=== PATIENT | male | born 1945 | race Caucasian/White ===

== ENCOUNTER 2018-05-11 07:26 | Day surgery (SDC) | payer OTHER ==
[2018-05-10 16:22] VITALS: BMI 23.3
--- NOTE | 2018-05-11 09:16 | HP ---
History & Physical Update - History History: No Change (Right sided inguinal hernia repair, with mesh. The procedure has been explained , including use of prosthetic mesh. Risks, benefits and complications, including , pain , infection , hematoma and recurrence has been explained. Consent given for surgery.) - Physical Physical: No Change - Assessment Assessment: No Change - Plan Plan: No Change
[2018-05-11] MEDS ORDERED: MIDAZOLAM HCL 2 MG/2 ML SINGLE DOSE VIAL ONE (09:48)
[2018-05-11] MEDS ORDERED: ROCURONIUM BROMIDE 50 MG/5 ML VIAL ONE (09:48)
[2018-05-11] MEDS ORDERED: BUPIVACAINE HCL/PF 0.5% (5MG/ML) 10 ML VIAL ONE (09:53)
[2018-05-11] MEDS ORDERED: ceFAZolin 2 GRAM PREMIX BAG IVPB ONE (10:20)
[2018-05-11] MEDS ORDERED: BUPIVACAINE HCL/PF (5 MG/ML) 30 ML VIAL IJ ONE (10:20)
[2018-05-11] MEDS ORDERED: KETOROLAC TROMETHAMINE 30 MG/1 ML VIAL ONE (10:49)
[2018-05-11] MEDS ORDERED: LIDOCAINE HCL/PF 2% SDV 5ML VIAL ONE (10:51)
[2018-05-11] MEDS ORDERED: ONDANSETRON 4 MG/2 ML VIAL ONE (10:51)
[2018-05-11] MEDS ORDERED: ceFAZolin SODIUM 1 GM VIAL ONE (10:51)
[2018-05-11] MEDS ORDERED: SODIUM CHLORIDE 0.9% P/F 10 ML VIAL IJ ONE (10:51)
[2018-05-11] MEDS ORDERED: DEXAMETHASONE SOD PHOSPHATE 4 MG/1 ML VIAL ONE (10:51)
[2018-05-11] MEDS ORDERED: PROPOFOL 20 ML ONE (10:52)
[2018-05-11] MEDS ORDERED: PROMETHAZINE HCL 25 MG/1 ML VIAL IVPUSH PRN (11:00)
[2018-05-11] MEDS ORDERED: LACTATED RINGERS SOLUTION 1,000 ML IV SCH (11:00)
[2018-05-11] MEDS ORDERED: ONDANSETRON 4 MG/2 ML VIAL IVPUSH PRN (11:00)
[2018-05-11] MEDS ORDERED: ePHEDrine SULFATE 50 MG/1 ML AMPULE ONE (11:08)
--- NOTE | 2018-05-11 11:33 | OP ---
Operative Note - Note: Operative Date: 05/11/18 Pre-Operative Diagnosis: Right inguinal hernia. Operation: Repair of right inguinal hernia with plug and mesh. Findings: Large direct inguinal hernia across the posterior wall of the right inguinal canal. Implants: Hernia plug and mesh. Surgeon: Dayna Toscano Lap Welder: Edwar Pickering Anesthesiologist/CLINICAL OPERATIONS MANAGER: Andrea Shukla Anesthesia: General Specimens Removed: Lipoma of the cord. Estimated Blood Loss (mls): 5 Operative Report Dictated: Yes
--- NOTE | 2018-05-11 11:36 | SURG ---
Surgery Instrumentation Designer Note Instrumentation Designer: Edwar Pickering PA-C Date of Service: 05/11/18 Diagnosis: Right inguinal hernia Procedure: Open Right inguinal hernia repair with mesh I was present for the entirety of the operative procedure. For further detail, please refer to operative report.
[2018-05-11 14:09] VITALS: TEMP 97.8
[2018-05-11 14:23] VITALS: BP 132/70; PULSE 70
--- NOTE | 2018-05-11 17:10 | OP ---
DATE OF OPERATION: 05/11/2018 PREOPERATIVE DIAGNOSIS: Right inguinal hernia. POSTOPERATIVE DIAGNOSIS: Right inguinal hernia. OPERATIVE PROCEDURE: Repair of right inguinal hernia with plug and mesh. SURGEON: Dayna Toscano MD DEVELOPMENT ADMINISTRATOR: TIFFANY Currie, and medical student ANESTHESIA: General anesthesia OPERATIVE DESCRIPTION: This 73-year-old man has large right inguinal hernia, was brought in for repair of the hernia. Risks, benefits, complications have been discussed with the patient and consent obtained. Patient was brought to the operating room. General anesthesia was administered. Site was marked prior to bringing the patient to the operating room. The right groin was painted and draped. Timeout was called, and incision was made in the right groin along the skin crease. It was deepened through the skin and subcutaneous tissue, Lola fascia and external oblique aponeurosis. The ilioinguinal nerve was identified and preserved throughout the procedure. The cord structures were then isolated around the Darlene drain. The patient had large bulge on the posterior wall of the inguinal canal with fat protruding through it. The transversalis fascia was significantly attenuated. There was no internal oblique transverse abdominis muscle in the posterior wall of the inguinal canal. The cord structures were then inspected, incising the internal and external spermatic muscle and fascia. There was no evidence of any indirect hernia. There was a large lipoma of the cord which was excised and ligated at the internal ring. The patient had a wide internal ring. Through this a finger was placed behind the transversalis fascia and the fat and adipose tissue were from the posterior wall at the transversalis fascia at the inguinal canal. Large plug was inserted through the internal ring behind the transversalis fascia. This was anchored with two 2-0 Prolene sutures above and lateral to the internal ring and medial to the internal ring. The suture was passed through the internal oblique and transverse abdominal muscle, brought to the internal ring to the outer leaf of the plug and was then inserted through the internal ring and brought out through the transverse abdominis muscle and internal oblique muscle and fascia. Once both the sutures were placed, the plug was inserted through the internal ring and placed behind the posterior wall of the inguinal canal near the transversalis fascia and the internal oblique and transverse abdominis muscle. Mesh was then placed over the transversalis fascia interposing toward the defect and then through the internal oblique muscle and the shelving edge of the inguinal ligament. These were anchored at the level of the pubic tubercle with 2-0 Prolene sutures. The inferior leaf of the mesh was placed over the shelving edge of the inguinal ligament and anchored with VersaTack device. The superior leaf of the mesh was incorporated to the 2-0 Prolene suture holding the plug behind the defect by bringing the 2 limbs of the suture through the mesh and then tying the knot. Thus the internal oblique and transverse abdominis muscle were sandwiched between the mesh on the outer aspect and the plug on the deeper aspect. The lateral suture was brought over both the limbs of the mesh as it came around the cord structures and a new internal ring was created. A few tacks were then placed over the mesh to attach it to the underlying internal oblique muscle. The defect was adequately repaired and covered. Wound was irrigated, hemostasis was satisfactory. Marcaine 0.5% was injected into the wound around the ilioinguinal and iliohypogastric nerves, around the cord structures, and over the pubic tubercle, as well as and skin. The repair was adequately performed. The external oblique aponeurosis was then approximated from lateral to medial in running fashion using 3-0 Vicryl. New external ring was created. Lola fascia was approximated with buried interrupted 3-0 Vicryl sutures. Subcutaneous fat was approximated with buried interrupted 3-0 Vicryl sutures. Skin approximated with continuous 4-0 Monocryl sutures in a running subcuticular fashion. Sponge count, instrument count was correct at the completion of the procedure. Estimated blood loss was less than 5 mL. Patient tolerated procedure well, was extubated, and transferred to recovery room in satisfactory and stable condition. Alina [id number] cc: Jai Monte M.D.
--- NOTE | 2018-05-14 17:31 | PATH ---
Surgical Pathology Report Patient Name: LAUREANO GUZMÁN [facility]. Rec. #: [id number] /Age/Gender: 1945 (Age: 73) / M Account: [id number] Location: [facility] SURGICAL Taken: 05/11/2018 Received: 05/11/2018 Reported: 05/14/2018 Physicians: Hilda Toscano M.D. Specimen(s) Received LIPOMA OF THE CORD Clinical History Right inguinal hernia Final Diagnosis LIPOMA OF CORD, HERNIA REPAIR AND EXCISION: MATURE FIBROADIPOSE AND VASCULAR TISSUE COMPATIBLE WITH CORD LIPOMA. Electronically Signed Xin Grove M.D. Gross Description Received in formalin labeled "lipoma of the cord," is a 3.3 x 2.3 x 0.8 cm portion of olvera-yellow fibromembranous tissue with attached fat. Auricular Acupuncturist sections are submitted in one cassette. /05/11/2018
== END 2018-05-11 14:30 | disposition home or self-care (01) ==
LOC: JASU-SURG 07:26
PROVIDERS: ATTEND Specialist
PROC: 0YU50JZ Supplement Right Inguinal Region with Synthetic Substitute, Open Approach (ICD-10-PCS; principal; 2018-05-11 10:00)
DX: K40.90 Unilateral inguinal hernia, without obstruction or gangrene, not specified as recurrent (principal)
CPT/HCPCS: 88304-TC; 94760

== ENCOUNTER 2023-01-07 14:32 | Inpatient (IN) | payer OTHER ==
[2023-01-07] MEDS ORDERED: SODIUM CHLORIDE 1,973 ML IV ONE (15:36)
[2023-01-07 16:16] LABS: BASO % 0.2 % (0-2.0); EOS % 0.3 % (0-4.5); HEMOGLOBIN 12.1 GM/dL (11.7-16.9); LYMPH % 4.8 % (8-40); MCH 30.1 pg (25.7-33.7); MCHC 32.8 g/dl (32.0-35.9); MEAN CELL VOLUME 91.8 fl (80-96); MEAN PLT VOLUME 9.2 fl (7.5-11.1); MONO % 7.9 % (3.8-10.2); NEUT % 86.8 % (42.8-82.8); PLATELET COUNT 146 10^3/uL (134-434); RBC 4.03 M/mm3 (4.00-5.60); RDW 12.9 % (11.9-15.9); WHITE BLOOD COUNT 11.9 K/mm3 (4.0-10.0)
[2023-01-07 16:22] LABS: INR 1.33 (0.83-1.09); PROTHROMBIN TIME (PATIENT) 15.4 SEC (9.7-13.0)
[2023-01-07 16:23] LABS: VENOUS BASE EXCESS -1.3 mmol/L (-2-2); VENOUS O2 SATURATION 60.9 % (70-80); VENOUS PCO2 37.1 mmHg (38-52); VENOUS PH 7.409 (7.310-7.410)
[2023-01-07 16:25] LABS: ACTIVATED PTT 28.4 SECONDS (25.2-36.5)
[2023-01-07 16:49] LABS: POTASSIUM 4.5 mmol/L (3.5-5.1)
[2023-01-07 16:51] LABS: CALCIUM 8.7 mg/dL (8.5-10.1)
[2023-01-07 16:52] LABS: ALBUMIN 2.9 g/dl (3.4-5.0)
[2023-01-07 16:55] LABS: CREATININE 1.7 mg/dL (0.55-1.3)
[2023-01-07 16:57] LABS: BILIRUBIN,TOTAL 0.5 mg/dL (0.2-1); TOT PROT 5.8 g/dl (6.4-8.2)
[2023-01-07] MEDS ORDERED: LACTATED RINGERS SOLUTION 1000 ML INFUS.BAG IV ONE (17:11)
[2023-01-07] MEDS ORDERED: AZITHROMYCIN IVPB 500 MG in DEXTROSE 5%-WATER - 250 ML IVPB ONE (17:26)
[2023-01-07] MEDS ORDERED: AZITHROMYCIN IVPB 500 MG/250 ML BAG IVPB ONE (18:05)
[2023-01-07] MEDS ORDERED: cefTRIAXone SODIUM 1 GM VIAL ONE (18:05)
[2023-01-07 19:28] LABS: EPI CELLS 13 /uL (0-25.1); HYALINE CASTS 0 /uL (0-3.1); URINE APPEARANCE CLEAR; URINE BACTERIA 19 /uL (0-1359); URINE BILIRUBIN NEGATIVE (NEGATIVE); URINE COLOR YELLOW; URINE GLUCOSE (UA) NEGATIVE (NEGATIVE); URINE KETONE NEGATIVE (NEGATIVE); URINE LEUK ESTERASE 1+ (NEGATIVE); URINE NITRITE NEGATIVE (NEGATIVE); URINE PROTEIN TRACE (NEGATIVE); URINE RBC 18 /uL (0-23.9); URINE WBC 171 /uL (0-25.8)
[2023-01-07] MEDS: HEPARIN NA (PORCINE) 5,000 UNITS/ML 1ML VIAL SQ SCH (22:12)
[2023-01-07 23:40] VITALS: BMI 23.2
[2023-01-08] MEDS: LACTATED RINGERS SOLUTION 1,000 ML/1,000 ML INFUS.BAG IV SCH (05:13)
[2023-01-08] MEDS: HEPARIN NA (PORCINE) 5,000 UNITS/ML 1ML VIAL SQ SCH ×3 (05:20→22:49)
[2023-01-08] MEDS ORDERED: PIPERACILLIN/TAZOB 3.375 GM 3.375 GM in DEXTROSE 5%-WATER - 50 ML IVPB SCH (06:45)
[2023-01-08 09:23] LABS: BASO % 0.1 % (0-2.0); EOS % 0.3 % (0-4.5); HEMOGLOBIN 11.1 GM/dL (11.7-16.9); MCH 30.8 pg (25.7-33.7); MCHC 33.7 g/dl (32.0-35.9); MEAN CELL VOLUME 91.5 fl (80-96); MONO % 9.9 % (3.8-10.2); NEUT % 84.7 % (42.8-82.8); PLATELET COUNT 139 10^3/uL (134-434); RDW 12.9 % (11.9-15.9); WHITE BLOOD COUNT 10.8 K/mm3 (4.0-10.0)
[2023-01-08 09:58] LABS: POTASSIUM 4.2 mmol/L (3.5-5.1)
[2023-01-08] MEDS ORDERED: VANCOMYCIN 1 GM in D5W (PRE-DOCKED) 1,000 MG/250 ML (RESTRICTED TO ID ONLY IVPB SCH (10:00)
[2023-01-08] MEDS ORDERED: VANCOMYCIN 1 GM/200 ML PREMIX BAG (RESTRICTED TO ID ONLY) IVPB SCH (10:00)
[2023-01-08 10:04] LABS: BILIRUBIN,TOTAL 0.5 mg/dL (0.2-1)
[2023-01-08 10:06] LABS: CALCIUM 8.3 mg/dL (8.5-10.1)
[2023-01-08 10:07] LABS: ALBUMIN 2.6 g/dl (3.4-5.0); BLOOD UREA NITROGEN 21.2 mg/dL (7-18); MAGNESIUM 1.5 mg/dL (1.8-2.4)
[2023-01-08 10:10] LABS: CREATININE 1.4 mg/dL (0.55-1.3); PHOSPHOROUS 2.4 mg/dL (2.5-4.9)
[2023-01-08 10:11] LABS: TOT PROT 5.3 g/dl (6.4-8.2)
[2023-01-08] MEDS: PIPERACILLIN/TAZOB 3.375 GM 3.375 GM in DEXTROSE 5%-WATER - 50 ML IVPB SCH (18:30)
[2023-01-09] MEDS: PIPERACILLIN/TAZOB 3.375 GM 3.375 GM in DEXTROSE 5%-WATER - 50 ML IVPB SCH ×3 (02:13→17:12)
[2023-01-09] MEDS: HEPARIN NA (PORCINE) 5,000 UNITS/ML 1ML VIAL SQ SCH ×3 (05:23→21:20)
[2023-01-09] MEDS: LACTATED RINGERS SOLUTION 1,000 ML/1,000 ML INFUS.BAG IV SCH ×2 (05:25→11:21)
[2023-01-09] MEDS ORDERED: FUROSEMIDE 40 MG/4 ML INJECTABLE VIAL IVPUSH ONE (17:47)
[2023-01-09 19:46] LABS: POTASSIUM 3.8 mmol/L (3.5-5.1)
[2023-01-09 19:47] LABS: BLOOD UREA NITROGEN 15.6 mg/dL (7-18); CALCIUM 8.7 mg/dL (8.5-10.1); MAGNESIUM 1.5 mg/dL (1.8-2.4)
[2023-01-09 19:51] LABS: CREATININE 1.4 mg/dL (0.55-1.3); PHOSPHOROUS 2.6 mg/dL (2.5-4.9)
[2023-01-10] MEDS ORDERED: PIPERACILLIN/TAZOBACTAM 3.375 GM VIAL IVPB ONE (01:26)
[2023-01-10] MEDS: PIPERACILLIN/TAZOB 3.375 GM 3.375 GM in DEXTROSE 5%-WATER - 50 ML IVPB SCH ×2 (01:33→09:58)
[2023-01-10] MEDS: HEPARIN NA (PORCINE) 5,000 UNITS/ML 1ML VIAL SQ SCH ×2 (05:10→14:35)
[2023-01-10 09:37] LABS: BASO % 0.3 % (0-2.0); EOS % 1.1 % (0-4.5); HEMATOCRIT 34.5 % (35.4-49); HEMOGLOBIN 11.7 GM/dL (11.7-16.9); LYMPH % 7.4 % (8-40); MCH 30.5 pg (25.7-33.7); MCHC 33.8 g/dl (32.0-35.9); MEAN CELL VOLUME 90.4 fl (80-96); MEAN PLT VOLUME 9.3 fl (7.5-11.1); MONO % 12.7 % (3.8-10.2); NEUT % 78.5 % (42.8-82.8); PLATELET COUNT 182 10^3/uL (134-434); RBC 3.82 M/mm3 (4.00-5.60); RDW 12.7 % (11.9-15.9); WHITE BLOOD COUNT 8.8 K/mm3 (4.0-10.0)
[2023-01-10 09:57] LABS: POTASSIUM 3.9 mmol/L (3.5-5.1)
[2023-01-10 10:06] LABS: CALCIUM 8.8 mg/dL (8.5-10.1)
[2023-01-10 10:07] LABS: ALBUMIN 2.5 g/dl (3.4-5.0); BLOOD UREA NITROGEN 14.5 mg/dL (7-18)
[2023-01-10 10:10] LABS: CREATININE 1.3 mg/dL (0.55-1.3)
[2023-01-10 10:11] LABS: TOT PROT 5.5 g/dl (6.4-8.2)
[2023-01-10 10:13] LABS: BILIRUBIN,TOTAL 0.8 mg/dL (0.2-1)
[2023-01-10 10:36] LABS: MAGNESIUM 1.8 mg/dL (1.8-2.4)
[2023-01-10 10:39] LABS: PHOSPHOROUS 2.9 mg/dL (2.5-4.9)
[2023-01-10] MEDS ORDERED: LACTOBACILLUS ACIDOPHILUS 1 TABLET PO SCH (11:15)
[2023-01-10 13:42] VITALS: BP 139/84; PULSE 92; RESP 18; TEMP 97.9
[2023-01-10] MEDS ORDERED: BANATROL PLUS POWDER PACKET PO SCH (14:00)
== END 2023-01-10 17:27 | disposition home or self-care (01) | DRG 194 ==
LOC: JER 14:32 → JERBED 18:47 → J6S 20:44
PROVIDERS: ADMIT Internal Medicine; ATTEND Internal Medicine
DX: J18.9 Pneumonia, unspecified organism (principal); R78.81 Bacteremia; I10 Essential (primary) hypertension; E86.0 Dehydration; N18.9 Chronic kidney disease, unspecified
CPT/HCPCS: 36415; 71045-TC-FY; 71250-TC; 76775-TC; 80048; 80053; 81003; 82550; 82553; 82803; 83605; 83735; 84100; 84153; 84484; 85025; 85610; 85730; 86850; 86900; 86901; 87040; 87070; 87081; 87086; 87205; 87899; 93005; 93010; 93306-TC; 99285-25; J1644

== ENCOUNTER 2024-02-05 04:29 | Day surgery (SDC) | payer OTHER ==
[2024-02-01 13:11] VITALS: BMI 24.5
[2024-02-05] MEDS ORDERED: ONDANSETRON 4 MG/2 ML VIAL IVPUSH PRN (15:16)
[2024-02-05] MEDS ORDERED: LACTATED RINGERS SOLUTION 1,000 ML IV SCH (15:30)
[2024-02-05] MEDS ORDERED: MIDAZOLAM HCL 2 MG/2 ML SINGLE DOSE VIAL ONE (17:31)
[2024-02-05] MEDS: ceFAZolin SODIUM 1 GM VIAL IVPB ONE (18:10)
[2024-02-05 20:12] VITALS: BP 127/71; PULSE 88; RESP 18; TEMP 97.7
== END 2024-02-05 20:05 | disposition home or self-care (01) ==
LOC: JASU-SURG 04:29
PROVIDERS: ATTEND Urology
PROC: 0TND8ZZ Release Urethra, Via Natural or Artificial Opening Endoscopic (ICD-10-PCS; principal; 2024-02-05 15:00)
DX: N35.912 Unspecified bulbous urethral stricture, male (principal)
CPT/HCPCS: 94760; C1769

== ENCOUNTER 2024-02-06 06:31 | Emergency (ER) | payer OTHER ==
[2024-02-06 06:36] VITALS: RESP 16; TEMP 97.8; BMI 24.9
[2024-02-06 08:32] VITALS: BP 131/78; PULSE 103
== END 2024-02-06 08:33 | disposition home or self-care (01) ==
LOC: JER 06:31
DX: R30.0 Dysuria (principal); R82.998 Other abnormal findings in urine
CPT/HCPCS: 99283-25